=== PATIENT | female | born 1940 | race Caucasian/White ===

== ENCOUNTER → 2023-11-04 18:00 | Outpatient (REF) | payer MEDICARE, BC, SELFPAY | LOC: HWRAD 18:00 | PROVIDERS: ATTENDING PHYSICIAN Podiatrist Foot & Ankle Surgery; FAMILY PHYSICIAN Internal Medicine | DX: M20.41 Other hammer toe(s) (acquired), right foot (principal); M20.42 Other hammer toe(s) (acquired), left foot | CPT/HCPCS: 73630 ==

== ENCOUNTER → 2025-02-12 14:39 | Outpatient (REF) | payer MEDICARE, BC, SELFPAY | LOC: HWRCS 14:39 | PROVIDERS: ATTENDING PHYSICIAN Internal Medicine Cardiovascular Disease; FAMILY PHYSICIAN Internal Medicine | DX: R42 Dizziness and giddiness (principal); I10 Essential (primary) hypertension; R06.09 Other forms of dyspnea | CPT/HCPCS: 93306 ==

== ENCOUNTER → 2025-03-11 10:46 | Outpatient (REF) | payer MEDICARE, BC, SELFPAY | LOC: HWRCS 10:46 | PROVIDERS: ATTENDING PHYSICIAN Internal Medicine Cardiovascular Disease; FAMILY PHYSICIAN Internal Medicine | DX: R42 Dizziness and giddiness (principal); I10 Essential (primary) hypertension; R06.09 Other forms of dyspnea | CPT/HCPCS: 78452; 93017; A9500; J2785 ==

== ENCOUNTER 2025-04-16 12:38 | Emergency (ER) | payer MEDICARE, BC, SELFPAY ==
[2025-04-16 12:40] VITALS: BP 159/86
--- NOTE | 2025-04-16 13:17 | ED.GENMED ---
History of Present Illness
General
Chief Complaint: Abdominal Pain
Source: patient
Exam Limitations: none
Time Seen by Provider: 04/16/25 13:02
Nursing documentation reviewed up to this point in time: agreed with
History of Present Illness
History of Present Illness:
84-year-old female with history of sleep apnea, HTN, pacemaker, long QT, GERD, IBS, kidney stones, thyroidectomy partial, parathyroidectomy, presents for RUQ abdominal pain that radiates through to her back. Symptoms started 9/3 with significant
pain, then waxed and waned over past month, better when she watched her diet and Tylenol helped. Saw PCP and has out pt rx for US but last night pain was so bad with no relief, she couldn't wait any longer. She states pain is now 3/10 after Tylenol
helped. Denies f/c, n/v/d/c.
Past History
Past History
ED Past Medical History: GERD, HTN and Other (Prolonged QT, Menieres disease, Hiatal hernia, Diverticulosis, IBS, Renal calculus, Glaucoma, Twisted esophagus, )
ED Past Surgical History: Appendectomy, Cardiac (Pacemaker), Gynecological (Hysterectomy), Tonsilectomy and Other (Liver and breast biopsy, Partial thyroidectomy, Parathyroidectomy, )
Social History
Tobacco: Non-smoker
Alcohol: Occasional
Drug: None
Personal:
Living: with family
Employment: Retired
Family History
Family History: Other
Review of Systems
Review of Systems
Allergies reviewed?: Yes
All Other Systems: ROS reviewed and negative except as documented in HPI and ROS
Constitutional: Denies fever or chills
Respiratory: Denies trouble breathing
Cardiac: Denies chest pain or diaphoresis
ABD/GI: Reports abdominal pain; Denies nausea, vomiting, diarrhea or constipated
Phy Exam
Physical Exam
Physical Exam:
GENERAL: No acute distress. A&Ox3.
CONSTITUTIONAL: Afebrile.
EYES: clear, conjunctivae normal
ENMT: moist mucus membranes, Pharynx nl
RESPIRATORY: Regular respirations, nonlabored, lungs clear.
CARDIOVASCULAR: Regular rate and rhythm, no murmurs, no rubs.
GI: Soft, miimally tender mid to right upper abdomen, normal BS
MUSCULOSKELETAL: Moves with ease. Well perfused.
SKIN: Warm, dry, pink
PSYCH: Normal mood and affect. Well kept, interactive and appropriate
NEUROLOGIC: Awake, alert and oriented. No focal neurological deficits
Course
Orders/Labs/Results
Orders:
Orders
04/16/25 13:18
Complete Blood Count/With Diff Urgent
Comprehensive Metabolic Panel Urgent
Lipase Urgent
US Abdomen Complete/Upper Urgent
Comment:
Reason For Exam: Right upper quadrant pain
04/16/25 13:20
Urinalysis Reflex To Culture Urgent
Date Specimen was Collected: 04/16/25
Time Specimen was Collected: 13:19
Urine Microscopic Reflex Cult Urgent
04/16/25 15:12
CT Abd/pel Without Iv Or Oral Urgent
Comment:
Reason For Exam: Right side and back pain
Abnormal Lab Results
04/16/25 04/16/25
13:18 13:20
RBC 5.47 H 10^6/uL
(4.20-5.40)
RDW 15.0 H %
(11.5-14.5)
Abs Immat Gran (auto) 0.1 H 10^3/uL
(0-0.05)
Absolute Neuts (auto) 7.3 H 10^3/uL
(1.4-6.5)
Absolute Monos (auto) 0.7 H 10^3/uL
(0.1-0.6)
Immature Gran % 0.7 H %
(0-0.5)
Lymphocytes % 20.1 L %
(20.5-51.1)
BUN 18 H mg/dl
(7-17)
Glucose 103 H mg/dl
(70-99)
Ur Occult Blood Reflex 2+ A
(Negative)
Urine RBC 3-6 A /HPF
(0-2)
04/16/25 13:18
04/16/25 13:18
Vital Signs
Initial and Last Documented VS:
Initial Vital Signs
Temp Pulse Resp BP Pulse Ox
98.0 F 81 18 159/86 96
04/16/25 12:40 04/16/25 12:40 04/16/25 12:40 04/16/25 12:40 04/16/25 12:40
Last Documented Vital Signs
Temp Pulse Resp BP Pulse Ox
98.0 F 72 16 150/76 97
04/16/25 12:40 04/16/25 17:27 04/16/25 17:27 04/16/25 17:27 04/16/25 17:27
Credit Card Analyst consulted with Physician
Credit Card Analyst consulted with physician?: Yes
Name of Physician Consulted: [facility]
MDM/Problems Addressed
Differential Diagnosis Includes:
Biliary colic, cholecystitis, kidney stone
MDM/Problems Addressed:
84-year-old female with history of sleep apnea, HTN, pacemaker, long QT, GERD, IBS, kidney stones, thyroidectomy partial, parathyroidectomy, presents for RUQ abdominal pain that radiates through to her back. Symptoms started 9/ with significant
pain, then waxed and waned over past month, better when she watched her diet and Tylenol helped. Saw PCP and has out pt rx for US but last night pain was so bad with no relief, she couldn't wait any longer. She states pain is now 3/10 after Tylenol
helped. Denies f/c, n/v/d/c.
CBC normal
CMP Normal
Lipase normal
UA unremarkable
1530:
Upper abdominal ultrasound radiology report reviewed: Normal appearance of the gallbladder with no evidence for biliary ductal dilation.
Diffuse increased echogenicity of the liver, most likely from fatty infiltration, with differential consideration of diffuse hepatocellular disease. No evidence of a focal hepatic lesion.
Bilateral parapelvic renal cysts.
Will proceed CT abdomen pelvis with no contrast r
4:45 PM:
CT abdomen pelvis plain radiology report read:
IMPRESSION:
1. Mild to moderate chronic bilateral renal disease.
2. Large number of bilateral parapelvic renal cysts.
3. Mild gallbladder distention.
4. Severe diverticulosis in the sigmoid colon.
5. Small hiatal hernia.
6. Small cystocele.
7. Severe calcific atherosclerotic plaque in the abdominal aorta.
8. Severe lower lumbar facet joint arthrosis.
9. Cardiac pacemaker in place.
Case discussed with Dr. Nichole.
Patient pain is minimal at this time. Discussed findings with patient and daughter, all questions answered. Patient is stable for discharge. She will follow-up with GI. I sent a message to GI commercial interior designer to get her in sooner rather than later
*Pulse Oximetry
SaO2: 96
Oxygen Mode of Delivery: Room air
Patient hypoxic: no
*Critical Care Note
Total Time (30-74mins, 75-104mins- exclusive of procedures): Not Applicable
ED Attending Note
-
Portions of this chart may have been created with voice recognition software.� Occasional wrong word or��sound alike� substitutions may have occurred due to the inherent limitations of voice recognition software.
Discharge Plan
Departure
Patient Disposition: Home (Routine Discharge)
Date of Disposition: 04/16/25
Time of Disposition: 17:02
Patient with high blood pressure during this ER visit?: No
Condition: Good
Discharge Problem:
Abdominal pain, Low back pain
Instructions: Low back pain - ED (DC), Abdominal Pain
Prescriptions:
No Action
latanoprost 1 DROP drops
1 drp OPHTHALMIC HS
aspirin [Aspir-Low] 81 MG tablet,delayed release (DR/EC)
81 mg PO DAILY
nadolol 20 MG tablet
20 mg PO HS
famotidine 20 MG tablet
20 mg PO HS
calcium polycarbophil [Fiber-Tabs] 625 MG tablet
2,500 mg PO DAILY
magnesium 250 MG tablet
500 mg PO QPM
hydrochlorothiazide 25 MG tablet
25 mg PO DAILY
ipratropium bromide 1 SPRAY spray,non-aerosol
1 spray intranasal . PRN 4XDAY PRN (Reason: allergy)
fluticasone propionate 1 SPRAY spray,suspension
1 spray intranasal DAILY
cholecalciferol (vitamin D3) [Vitamin D3] 1,000 UNIT capsule
2,000 unit PO BID
docosahexaenoic acid-epa 1 CAP capsule
2 cap PO BID
rosuvastatin [Crestor] 10 MG tablet
10 mg PO QPM
peg 400-propylene glycol (PF) [Systane Ultra (PF)] 1 EACH dropperette
1 ea OP .PRN X4DAY PRN (Reason: dry eyes)
coenzyme Q10 [Co Q-10] 200 MG capsule
200 mg PO QPM
potassium citrate 15 MEQ tablet extended release
15 meq PO BID
guaifenesin [Mucus Relief ER] 600 MG tablet extended release 12hr
1,200 mg PO DAILY PRN (Reason: cough)
L.acidoph,paracasei,B.animalis 1 EACH capsule
1 ea PO DAILY
turmeric root extract 538 MG capsule
538 mg PO BID
artificial tears(hypromellose) [Systane Gel] 10 GM gel
10 gm ophthalmic (eye) HS
Patient Comments:
right eye only
psyllium husk [Metamucil] 0.4 GM capsule
2 cap PO DAILY
prednisone 20 mg tablet
20 mg PO DAILY Qty: 5 0RF
Referrals:
Cj Barclay MD [Family Provider, Internal Medicine]
Elmer Zaman MD [Active, Gastroenterology] - Next open appointment
Activity Restrictions/Additional Instructions:
As we discussed, nothing in your workup here today to explain your symptoms.
Tylenol 1000 mg up to 3 times a day as needed for pain
If you have not heard from the GI doctors office by Saturday or Saturday, give them a call and make an appointment for follow-up.
I did send your information to the commercial interior designer to see if they can get you in sooner rather than later.
Interventions
Interventions:
*Risk Screen - Suicide Last Done: 04/16/25 13:26
*General Assessment Last Done: 04/16/25 12:40
*Neglect/Abuse Screening Last Done: 04/16/25 13:26
*ED- Fall Risk Assessment Last Done: 04/16/25 17:28
*ED COVID-19 Vaccine History Last Done: 04/16/25 13:26
*ED Influenza Vaccine History Last Done: 04/16/25 13:26
*Nursing Disposition Last Done: 04/16/25 17:28
OP-Xjkdcz-Tgvcfbddhp Assessment Last Done: 04/16/25 13:28
Discharge Date and Time
Discharge Date/Time: 04/16/25 17:30
Print Language: GREENLANDIC
[2025-04-16 13:27] LABS: Hematocrit 46.0 % (37.0-47.0); Hemoglobin 15.4 g/dL (12.0-16.0); Mean Corp Hgb Conc. 33.5 g/dL (33.0-37.0); Mean Corpuscular Volume 84.1 fL (81.0-99.0); Nucleated Red Blood Cells % 0 %; Platelet Count 278 10^3/uL (130-400); Red Cell Dist. Width 15.0 % (11.5-14.5)
[2025-04-16 13:36] LABS: ALT (SGPT) 24 U/L (0-35); AST (SGOT) 27 U/L (14-36); Albumin 4.6 g/dl (3.5-5.0); Alkaline Phosphatase 78 U/L (38-126); Blood Urea Nitrogen 18 mg/dl (7-17); Calcium 9.4 mg/dl (8.4-10.2); Carbon Dioxide 29 mmol/L (22-30); Chloride 102 mmol/L (98-107); Glucose 103 mg/dl (70-99); Lipase 225 U/L (23-300); Potassium 4.1 mmol/L (3.5-5.1); Sodium 136 mmol/L (135-145); Total Protein 7.6 g/dl (6.3-8.2); eGFR > 60.00
[2025-04-16 13:59] LABS: Urine Character Clear (Clear)
[2025-04-16 14:15] LABS: Urine Squamous Cell 0-2 /LPF (Few); Urine White Cell 0-2 /HPF (0-5)
[2025-04-16 17:27] VITALS: BP 150/76
== END 2025-04-16 17:30 | disposition home or self-care (01) ==
LOC: EMR 12:38
PROVIDERS: Registered Nurse; EMERGENCY PHYSICIAN Emergency Medicine; FAMILY PHYSICIAN Internal Medicine
DX: R10.9 Unspecified abdominal pain (principal); M54.50 Low back pain, unspecified; I10 Essential (primary) hypertension; R94.31 Abnormal electrocardiogram [ECG] [EKG]; G47.30 Sleep apnea, unspecified; H40.9 Unspecified glaucoma; H81.09 Meniere's disease, unspecified ear; Z87.442 Personal history of urinary calculi; Z90.49 Acquired absence of other specified parts of digestive tract; Z95.0 Presence of cardiac pacemaker
CPT/HCPCS: 99284; 74176; 76700; 80053; 81003; 81015; 83690; 85025

== ENCOUNTER → 2025-06-11 12:51 | Outpatient (REF) | payer MEDICARE, BC, SELFPAY | LOC: RAD 12:51 | PROVIDERS: ATTENDING PHYSICIAN Internal Medicine Cardiovascular Disease; FAMILY PHYSICIAN Internal Medicine; OTHER PHYSICIAN Surgery Vascular Surgery | DX: I73.9 Peripheral vascular disease, unspecified (principal) | CPT/HCPCS: 93922; 93925 ==